=== PATIENT | male | born 1980 | race Caucasian/White ===

== ENCOUNTER → 2024-09-04 | Outpatient (CLI) | payer MEDICAID ==
[~2024-09-04] VITALS: Ht 185.4 cm; Wt 108.9 kg
[~2024-09-04] MED LIST: CYCL-1 PO; aminophylline 500mg/20ml vial IV PRN; nitroGLYCERIN 0.4mg SUBLingual tab SL PRN; normal saline 500ml IV soln 500 ML IV ONE
[2024-09-04 11:04] VITALS: BP 113/80; PULSE 68; RESP 18; O2SAT 98
[2024-09-04] MEDS: regadenoson 0.4mg/5ml syringe IV ONE (11:04)
[2024-09-04 11:11] VITALS: BP 112/88; PULSE 88; RESP 18; O2SAT 99
[2024-09-04 11:12] VITALS: BP_SYST 119; BP_SYST 121; BP_DIAS 82; BP_DIAS 83; PULSE 90; RESP 18; O2SAT 100
[2024-09-04 11:13] VITALS: BP_SYST 107; BP_SYST 115; BP_SYST 119; BP_DIAS 72; BP_DIAS 78; PULSE 87; PULSE 89; RESP 18; O2SAT 100; O2SAT 99
[2024-09-04 11:14] VITALS: BP 110/77; PULSE 85; RESP 18; O2SAT 99
[2024-09-04 11:15] VITALS: BP_SYST 105; BP_SYST 118; BP_DIAS 76; PULSE 83; PULSE 84; RESP 18; O2SAT 99
--- NOTE | 2024-09-04 20:08 | RADIOLOGY REPORT ---
EXAM: NM NM DAVID SCAN HISTORY: SOB;TACHYCARDIA COMPARISON: None TECHNIQUE: A single day protocol was utilized. Resting examination was performed with intravenous ad ministration of 8.3 mCi of technetium 99m MyoView. A gated stress examination was performed with the intravenous administration of 30 mCi of technetium 99m MyoView and 0.4 mg/mL Lexiscan. SPECT imagin g performed at rest followed by same day gated SPECT imaging following pharmacologic stress with 0.4 mg/ml Regadenoson (Lexiscan) IV. FINDINGS: Moderate-sized defect in the inferior wall , apex and periapical lateral and anterior franklin which mat ears larger and more severe in the stress images. Large amount of tracer activity seen under the hem idiaphragm in the liver and bowel. The gated data was reviewed at the computer monitor and there is seen fairly uniform, unremarkable le ft ventricular wall motion. No areas of akinesia or significant hypokinesia are present. The computer calculates a global left ventricular ejection fraction of 58 %, which is above the 51% l ower limit of normal. IMPRESSION: 1. Suboptimal evaluation of the inferior wall, apex and periapical myocardium due to strong tracer ac tivity under the adjacent hemidiaphragm which limits evaluation. Stress-induced ischemia can not be r uled out. Correlate clinically. 2. Unremarkable left ventricular wall motion. 3. Normal left ventricular ejection fraction of 58 %.
== END | disposition home or self-care (01) ==
LOC: NM 08:54
PROVIDERS: ATTEND Physician Assistant
DX: R00.0 Tachycardia, unspecified (principal); R06.02 Shortness of breath
CPT/HCPCS: 78452; 93017; A9500; J2785; J7040; J0280